=== PATIENT | female | born 1985 | race Caucasian/White ===

== ENCOUNTER 2016-09-02 11:57 | Day surgery (SDC) | payer BC ==
[~2016-09-02 11:57] MED LIST: Lidocaine 2% JELLY* 6 ML JELLY TOPICAL ONE; ROPIVACAINE 5 MG/ML 30 ML BTL (0.5%) EPIDURAL ONE; Succinylcholine* 20 MG/ML 10 ML VIAL ONE
[2016-09-02] MEDS ORDERED: Lidocaine 4% TOPICAL* 50 ML TOP.SOLN ONE (11:59)
[2016-09-02] MEDS ORDERED: Oxymetazoline 0.05% NASAL SPR* 15 ML BTL ONE (11:59)
[2016-09-02] MEDS ORDERED: Methylene Blue 0.5 %* 50 MG/10 ML AMP IV ONE (12:04)
[2016-09-02] MEDS ORDERED: fentaNYL* 50 MCG/ML 2 ML VIAL (100 MCG VIAL) IV ONE (12:16)
[2016-09-02] MEDS ORDERED: Midazolam* 1 MG/ML 2 ML VIAL (2 MG) IV ONE (12:17)
[2016-09-02] MEDS ORDERED: fentaNYL* 50 MCG/ML 2 ML VIAL (100 MCG VIAL) IV PRN (12:26)
[2016-09-02] MEDS ORDERED: Famotidine IV* 10 MG/ML 2 ML (20 mg) ONE (12:40)
[2016-09-02] MEDS ORDERED: Dexamethasone IV* 4 MG/ML 1 ML (4 MG) ONE (12:40)
[2016-09-02] MEDS ORDERED: Buffered Lidocaine 0.9% SYRIN* 5 ML/SYR SYRINGE INJ ONE (12:54)
[2016-09-02] MEDS ORDERED: HYDROcodone/ACET. 7.5/325 LIQ* 15 ML UDC ONE ×2 (14:15→15:02)
[2016-09-02 15:01] VITALS: BP 126/79
--- NOTE | 2016-09-03 16:32 | OP ---
DATE OF OPERATION: 09/02/16 - [facility] DATE OF : [birth year] SURGEON: Christiano Sharpe MD ANESTHESIOLOGIST: Dejan Aragon MD ANESTHESIA: General endotracheal. PRE-OP DIAGNOSIS: Right hypopharyngeal mass. POST-OP DIAGNOSIS: Right hypopharyngeal mass. OPERATIVE PROCEDURE: Microlaryngoscopy with KTP laser excision of right hypopharyngeal mass under general endotracheal anesthesia. COMPLICATIONS: None. DISPOSITION: Good. SPECIMEN: Right hypopharyngeal mass. DESCRIPTION OF PROCEDURE: The patient was taken to the operating room and placed down in supine position on the operating table, general anesthesia as induced, orotracheally intubated with a laser-safe endotracheal tube. She was turned and draped for this surgery including using wet eye pads and wet towels around her face. The bivalvular laryngoscope was inserted to visualize the mass and it was suspended from the suspension system. It was a smooth walled, seeming from a thin capsule but multilobulated internally and it had a broad attachment to the lateral wall of the hypopharynx and the piriform sinus, but as I was retracting, I saw that there was a nice plane to dissect it free. Using the KTP laser at a power setting of 6, I was able to systematically come around it, cutting the attachments and removing it without difficulties. During the case, I used oxymetazoline and 40% lidocaine for anesthesia. The patient tolerated it well, no complications, extubated uneventfully, and transferred to recovery room in stable condition. [id number]/CPS #: [id number] MTDD
== END 2016-09-02 15:24 | disposition home or self-care (01) ==
LOC: OR 11:57
PROVIDERS: ATTEND Otolaryngology
DX: D18.09 Hemangioma of other sites (principal); R13.13 Dysphagia, pharyngeal phase; Z87.891 Personal history of nicotine dependence; K21.9 Gastro-esophageal reflux disease without esophagitis
CPT/HCPCS: 88305; A9270-GY; J0330; J1100; J2250; J2795; J3010

== ENCOUNTER → 2016-09-03 09:24 | Emergency (ER) | payer BC ==
[~2016-09-03 09:24] MED LIST changes: +HYDROcodone/ACET. 7.5/325 LIQ* 15 ML UDC PO ONE; -Lidocaine 2% JELLY* 6 ML JELLY TOPICAL ONE; +PrednisoLONE LIQ 3 MG/ML* 15 MG/5 ML UDC ONE; +PrednisoLONE LIQ 3 MG/ML* 15 MG/5 ML UDC PO ONE; -ROPIVACAINE 5 MG/ML 30 ML BTL (0.5%) EPIDURAL ONE; -Succinylcholine* 20 MG/ML 10 ML VIAL ONE
[2016-09-03 11:37] VITALS: BP 114/70
--- NOTE | 2016-09-03 12:16 | ED ---
Nuvia Lovelace Salem, scribed for Gage Joyce MD on 09/03/16 at 0949 . Throat Pain/Nasal Congestion - HPI Summary HPI Summary: Patient is a 31 y/o F who presents to the ED with difficulty swallowing since earlier today. She states that she underwent throat surgery yesterday with Dr. Florentino for lump removal and biopsy. She has not been able to take the advised Tylenol or Advil because of swelling of the throat. However, she did manage to take 2 Advil pills at 0200 this morning. Pt reports a hoarse voice, but denies SOB, fever, chills, drooling. She states that ice chips have provided little alleviation. Pt called Dr. Bhavik WADE and was instructed to come in. - History of Current Complaint Chief Complaint: EDThroatPain Time Seen by Provider: 09/03/16 09:39 Hx Obtained From: Patient, Family/E Marketing Specialist Onset/Duration: Gradual Onset, Lasting Hours, Still Present Severity: Moderate Associated Signs And Symptoms: Positive: Hoarseness. Negative: Drooling Cough: None - Allergies/Home Medications Allergies/Adverse Reactions: Allergies Allergy/AdvReac Type Severity Reaction Status Date / Time Penicillins Allergy Rash Verified 09/02/16 11:52 PMH/Surg Hx/FS Hx/Imm Hx GI History: Reports: Other GI Disorders - heartburn issue Sensory History: Reports: Hx Contacts or Glasses - both - will wear glasses day of surgery Opthamlomology History: Reports: Hx Contacts or Glasses - both - will wear glasses day of surgery Psychiatric History: Reports: Hx Anxiety - prn med - Surgical History Surgery Procedure, Year, and Place: 2012 - [facility] [place]. appendectomy 2008 - [place]. tonsillectomy as a child - [facility] Hx Anesthesia Reactions: No Infectious Disease History: No Infectious Disease History: Denies: Traveled Outside the [place] in Last 30 Days - Family History Known Family History: Positive: Diabetes, Other - Asthma. - Social History Alcohol Use: None Hx Substance Use: No Substance Use Type: Reports: None Hx Tobacco Use: Yes Smoking Status (MU): Former Smoker Amount Used/How Often: 1/2 ppd for 7 years Review of Systems Negative: Fever, Chills ENT: Other - No drooling. Positive: Other - Difficulty swallowing. Throat swelling. Hoarse voice. Negative: Shortness Of Breath All Other Systems Reviewed And Are Negative: Yes Physical Exam - Summary Physical Exam Summary: The patient is well-nourished in no acute distress and in no acute pain. The skin is warm and dry and skin color reflects adequate perfusion. HEENT: The head is normocephalic and atraumatic. The pupils are equal and reactive. The conjunctivae are clear and without drainage. Nares are patent and without drainage. Mouth reveals moist mucous membranes and the throat is without erythema and exudate. The external ears are intact. The ear canals are patent and without drainage. The tympanic membranes are intact. Neck is supple with full range of motion and non-tender. Respiratory: Chest is non-tender. Lungs are clear to auscultation and breath sounds are symmetrical and equal. There is no stridor. Cardiovascular: Hear is regular rate and rhythm. There is no murmur or rub auscultated. There is no peripheral edema and pulses are symmetrical and equal. Abdomen: The abdomen is soft and non-tender. Musculoskeletal: There is no back pain noted. Extremities are non-tender with full range of motion. There is good capillary refill. Neurological: Patient is alert and oriented to person, place and time. The patient has symmetrical motor strength in all four extremities. Psychiatric: The patient appears mildly anxious. Triage Information Reviewed: Yes Vital Signs On Initial Exam: Initial Vitals Temp Pulse Resp BP Pulse Ox 97.3 F 65 16 153/77 99 09/03/16 09:26 09/03/16 09:26 09/03/16 09:26 09/03/16 09:26 09/03/16 09:26 Vital Signs Reviewed: Yes Diagnostics - Vital Signs Vital Signs Temp Pulse Resp BP Pulse Ox 09/03/16 09:29 96.8 F 62 18 153/77 99 09/03/16 09:26 97.3 F 65 16 153/77 99 - Laboratory Lab Statement: Any lab studies that have been ordered have been reviewed, and results considered in the medical decision making process. Re-Evaluation - Re-Evaluation First Eval Re-Evaluation Time: 10:22 Change: Improved Comment: Discussed consult. Pt feels better. EENT Course/Dx - Course Course Of Treatment: 31 y/o F presents with difficulty swallowing since earlier today s/p throat surgery with Dr. Florentino. Pt reports a hoarse voice, but denies SOB, fever, chills, drooling. She received Nortab in ED course. Pt was seen by Dr. Gutierres in the ED. She will be DCd home with Prednisone and Hydrocodone, as well as instructions. - Differential Diagnoses Differential Diagnoses: Laryngitis, Pharyngitis, Other - abscess, soft tissue swelling - Diagnoses Provider Diagnoses: Laryngeal edema, Secondary to mass removed from throat - Provider Notifications Discussed Care Of Patient With: Ibrahima Gutierres Time Discussed With Above Provider: 10:21 Instructed by Provider To: MD Will See In ED - Will do a bedside scope. Discharge - Discharge Plan Condition: Stable Disposition: HOME Prescriptions: HYDROcodone/ACET. 7.5/325 LIQ* [Lortab Elixir 7.5/325 per 15 ml *] 10 ml PO Q6H PRN #120 ml MDD 40 PRN Reason: pain PrednisoLONE LIQ 3 MG/ML UDC* [PrednisoLONE LIQ 3 MG/ML 5 ml UDC*] 15 mg PO BID #60 ml Patient Education Materials: Pharyngitis (ED) Referrals: Ibrahima Gutierres MD [Medical Doctor] - Additional Instructions: Please follow up with Dr. Gutierres on Monday (09/05/16). The documentation as recorded by the Nuvia galindo Salem accurately reflects the service I personally performed and the decisions made by , Gage Joyce MD.
--- NOTE | 2016-09-05 09:47 | OP ---
DATE OF OPERATION: 09/03/2016 - EMERGENCY DEPT DATE OF : 1985 SURGEON: Ibrahima Gutierres M.D. PRE-OP DIAGNOSES: Odynophagia and mild stridor. POST-OP DIAGNOSES: Odynophagia and mild stridor. OPERATIVE PROCEDURE: Laryngoscopy at bedside. BRIEF HISTORY: This is a 31-year-old female who had recent laryngeal surgery, this morning woke up with significant symptoms of odynophagia and some symptoms feeling of difficulty breathing. She had come to the emergency room where she had some improvement after taking some pain medication including some narcotics. DESCRIPTION OF PROCEDURE: The patient was operated at the bedside with topical anesthesia. Flexible laryngoscopy was introduced. There was evidence of some arytenoid edema and some false cord on the right side edema, somewhat obstructing the airway about one-third of the diameter. 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 Flexible scope was removed. The decision was made to use steroids here and then give her some courses of prednisone. She was advised, if there was any worsening of her symptoms to return back to the office to receive some narcotic pain medication for several days, and return back to the office on Monday if there were any further concerns. [id number]/[facility]AYWARD #: [id number] MTDJr
== END | disposition home or self-care (01) ==
LOC: ED 09:24
DX: J38.4 Edema of larynx (principal); R13.10 Dysphagia, unspecified; Z87.891 Personal history of nicotine dependence; Z98.890 Other specified postprocedural states
CPT/HCPCS: 99282

== ENCOUNTER 2017-05-30 15:01 | Inpatient (IN) | payer BC ==
[2017-05-30 15:48] LABS: ABS Basophils 0 10^3/ul (0-0.2); ABS Eosinophils 0 10^3/ul (0-0.6); ABS Lymphocytes 0.4 10^3/ul (1.0-4.8); ABS Monocytes 0.5 10^3/ul (0-0.8); ABS Neutrophils 7.9 10^3/ul (1.5-7.7); ABS Nucleated RBC 0 10^3/ul; Eosinophil % 0.1 % (0-6); Hematocrit 35 % (35-47); Hemoglobin 11.8 g/dl (12.0-16.0); Lymphocyte % 4.4 % (25-47); Mean Corpuscular HGB Conc 34 g/dl (31-36); Mean Corpuscular Hemoglobin 30 pg (27-31); Mean Corpuscular Volume 87 fL (80-97); Mean Platelet Volume 7.8 um3 (7.4-10.4); Nucleated Red Blood Cells % 0.1; Platelet Count 233 10^3/ul (150-450); Red Cell Distribution Width 15 % (10.5-15); White Blood Count 8.9 10^3/ul (3.5-10.8)
[2017-05-30] MEDS ORDERED: Sodium Citrate/Citric Acid* 15 ML UDC PO ONE (16:51)
[2017-05-30] MEDS ORDERED: ceFOXitin 2 GM IVPREMIX* 2 GM/50 ML BAG IVPB ONE (16:51)
[2017-05-30] MEDS ORDERED: Morphine PF AMP (0.5MG/ML)* 5 MG/10 ML AMP ONE (17:57)
[2017-05-30] MEDS ORDERED: OXYTOCIN* 10 UNITS/ML 1 ML VIAL ONE (17:57)
[2017-05-30] MEDS ORDERED: ceFOXitin(*) 2 GM in NS 0.9% 50 ML* 50 ML IVPB ONE (18:00)
[2017-05-30] MEDS ORDERED: Glycerin ADULT SUPP PR PRN (18:23)
[2017-05-30] MEDS ORDERED: oxyCODONE/Acetamin 5/325 MG* TAB PO PRN ×2 (18:23)
[2017-05-30] MEDS ORDERED: Witch Hazel PAD* JAR TOPICAL PRN (18:23)
[2017-05-30] MEDS ORDERED: Dibucaine 1% 28.35 GM TUBE PR PRN (18:23)
[2017-05-30] MEDS ORDERED: Acetaminophen TAB* 325 MG PO PRN (18:23)
[2017-05-30] MEDS ORDERED: fentaNYL* 50 MCG/ML 2 ML VIAL (100 MCG VIAL) IV PRN (19:29)
[2017-05-30] MEDS ORDERED: Naloxone* 0.4 MG/ML 1 ML VIAL IV PRN ×2 (19:29→19:30)
[2017-05-30] MEDS ORDERED: Ondansetron INJ* 2 MG/ML VIAL IV PRN (19:30)
[2017-05-30] MEDS: Docusate CAP* 100 MG PO SCH (21:11)
[2017-05-30] MEDS: oxyCODONE/Acetamin 5/325 MG* TAB PO PRN ×2 (21:11→21:48)
[2017-05-30] MEDS: Simethicone TAB* 80 MG TAB.CHEW PO SCH (21:12)
[2017-05-30] MEDS: Ibuprofen TAB* 400 MG PO SCH (21:12)
[2017-05-31] MEDS: Ibuprofen TAB* 400 MG PO SCH ×2 (01:31→07:52)
[2017-05-31] MEDS: oxyCODONE/Acetamin 5/325 MG* TAB PO PRN ×4 (01:32→19:47)
[2017-05-31 07:23] LABS: ABS Basophils 0 10^3/ul (0-0.2); ABS Eosinophils 0 10^3/ul (0-0.6); ABS Lymphocytes 0.9 10^3/ul (1.0-4.8); ABS Nucleated RBC 0 10^3/ul; Eosinophil % 0.3 % (0-6); Hematocrit 30 % (35-47); Hemoglobin 10.3 g/dl (12.0-16.0); Lymphocyte % 10.4 % (25-47); Mean Corpuscular HGB Conc 34 g/dl (31-36); Mean Corpuscular Hemoglobin 30 pg (27-31); Mean Corpuscular Volume 86 fL (80-97); Mean Platelet Volume 8.1 um3 (7.4-10.4); Nucleated Red Blood Cells % 0; Platelet Count 175 10^3/ul (150-450); Red Blood Count 3.47 10^6/ul (4.0-5.4); Red Cell Distribution Width 15 % (10.5-15)
[2017-05-31] MEDS: Docusate CAP* 100 MG PO SCH ×3 (07:52→19:46)
[2017-05-31] MEDS: Simethicone TAB* 80 MG TAB.CHEW PO SCH ×4 (07:52→19:46)
[2017-05-31] MEDS: Levothyroxine TAB* 25 MCG TAB PO SCH (08:00)
[2017-05-31] MEDS: Ferrous Gluconate TAB* 324 MG TAB PO SCH ×2 (09:00→19:46)
[2017-05-31] MEDS ORDERED: oxyCODONE/Acetamin 5/325 MG* TAB PO PRN (10:00)
--- NOTE | 2017-05-31 13:02 | OP ---
DATE OF OPERATION: 05/30/17 - ROOM #103 DATE OF : [birth year] SURGEON: Heidy Harvey MD. COMMISSION AUDITOR: Gaston Calderon CNM. PRE-OP DIAGNOSIS: Intrauterine gestation at 38 and 5 weeks' gestational age, prior section, rupture of membranes. Desires permanent sterilization. POST-OP DIAGNOSIS: Intrauterine gestation at 38 and 5 weeks' gestational age, prior section, rupture of membranes. OPERATIVE PROCEDURE: Repeat lower transverse section. ESTIMATED BLOOD LOSS: 600 mL. FLUIDS: Crystalloid, 1500. COUNTS: All correct. FINDINGS: Male . Weight 7 pounds 12 ounces. Apgars of 8 and 9. Normal- appearing placenta, uterus, ovaries, and tubes. INDICATION: The patient was planning for repeat section, but experienced rupture of membranes at 2 p.m. On arrival to Labor and Delivery, she was grossly ruptured. She did begin to have some contractions while in Labor and Delivery and opted to proceed with the repeat section instead of a trial of labor after section. Risks and benefits were reviewed with the patient extensively. DESCRIPTION OF PROCEDURE: After informed consent was signed, the patient was taken to the operating room where she was given a spinal anesthesia that was found to be adequate. She was prepped and draped in the dorsal supine position with a leftward tilt. A Yung catheter was introduced into her bladder and SCDs were placed on her legs. A time-out was performed. A Pfannenstiel incision was then made with a scalpel and carried down to the underlying layer of fascia. The fascia was incised on either side of the midline and the fascial incision was extended laterally with the Rodarte scissors. The inferior edge of the fascial incision was grasped with Silva clamps, tented up, and dissected down with a combination of sharp and blunt dissection. Then, the superior edge of the fascial incision was grasped with Silva clamps, tented up , and dissected down with blunt dissection. The rectus muscles were in the midline and the peritoneum was entered bluntly. The peritoneal incision was extended laterally with blunt pressure. The bladder blade was inserted. A transverse incision was made in the lower uterine segment with the scalpel. The incision was extended superiorly and inferiorly with blunt pressure. The 's head was delivered with fundal pressure followed by the shoulders and the rest of the body. After more than 30 seconds, the cord was clamped x2 and cut, and the baby was handed to the rn oncology. Cord blood was collected. The placenta then delivered with fundal massage and gentle cord traction. The uterus was exteriorized and cleared of clots and debris. The uterine incision was closed with 0 Vicryl in a running locked fashion with a second layer of suture imbricating the first. The abdomen was irrigated. Attention was turned to the tubes. The right tube was grasped with two Zenobia clamps and tied with 0 plain, with two sutures. The clamps were removed and good hemostasis was noted. Then attention was turned to the left tube, where the same procedure was repeated. The uterus was placed back into the abdominal cavity and the tubal sites were inspected once again and sutures were noted to be in place with good hemostasis. The incision was inspected and good hemostasis was noted. The peritoneum was then closed with 3-0 Vicryl in a running and locked fashion. The fascia was closed with 0 Vicryl in a running and locked fashion. The skin was closed with 4-0 Monocryl in a running subcuticular fashion. The incision was cleaned. Mastisol and Steri-Strips were placed and dressing was placed. The patient was moved to the stretcher and taken to the recovery room in stable condition. [id number]/SHELBY #: [id number] MARY JANE
[2017-05-31] MEDS: Ibuprofen TAB* 600 MG PO PRN ×2 (14:13→18:50)
[2017-05-31] MEDS ORDERED: Zolpidem TAB* 5 MG PO PRN (21:00)
[2017-06-01] MEDS: Ibuprofen TAB* 600 MG PO PRN ×4 (01:07→21:23)
[2017-06-01] MEDS: oxyCODONE/Acetamin 5/325 MG* TAB PO PRN ×6 (01:08→21:24)
[2017-06-01] MEDS: Levothyroxine TAB* 25 MCG TAB PO SCH (05:03)
[2017-06-01] MEDS: Simethicone TAB* 80 MG TAB.CHEW PO SCH ×4 (08:03→21:24)
[2017-06-01] MEDS: Docusate CAP* 100 MG PO SCH ×3 (09:23→21:23)
[2017-06-01] MEDS: Ferrous Gluconate TAB* 324 MG TAB PO SCH (09:25)
[2017-06-02] MEDS: Ibuprofen TAB* 600 MG PO PRN ×2 (03:51→10:47)
[2017-06-02] MEDS: oxyCODONE/Acetamin 5/325 MG* TAB PO PRN ×2 (03:52→10:48)
[2017-06-02] MEDS: Levothyroxine TAB* 25 MCG TAB PO SCH (06:05)
[2017-06-02] MEDS: Ferrous Gluconate TAB* 324 MG TAB PO SCH (06:23)
[2017-06-02 08:00] VITALS: BP 119/72
[2017-06-02] MEDS: Docusate CAP* 100 MG PO SCH (10:48)
[2017-06-02] MEDS: Simethicone TAB* 80 MG TAB.CHEW PO SCH (10:48)
== END 2017-06-02 13:47 | disposition home or self-care (01) | DRG 540 ==
LOC: MCHOBOUT 15:01 → MCHOB 16:23
PROVIDERS: ADMIT Obstetrics & Gynecology; ATTEND Obstetrics & Gynecology
PROC: 4A1HX4Z Monitoring of Products of Conception, Cardiac Electrical Activity, External Approach (ICD-10-PCS; 2017-05-30)
PROC: 0UB70ZZ Excision of Bilateral Fallopian Tubes, Open Approach (ICD-10-PCS; 2017-05-30)
PROC: 10D00Z1 Extraction of Products of Conception, Low, Open Approach (ICD-10-PCS; principal; 2017-05-30 18:04)
DX: O34.211 Maternal care for low transverse scar from previous cesarean delivery (principal); O99.284 Endocrine, nutritional and metabolic diseases complicating childbirth; E03.9 Hypothyroidism, unspecified; Z3A.38 38 weeks gestation of pregnancy; Z37.0 Single live birth; Z88.0 Allergy status to penicillin; Z30.2 Encounter for sterilization
CPT/HCPCS: 36415; 84112; 85025; 86850; 86900; 86901; 88302; A9270-GY; J0694; J2405; J2590; J3010

== ENCOUNTER 2019-04-26 09:04 | Emergency (ER) | payer BC ==
--- OUTSIDE RECORDS SUMMARY | 2019-04-26 09:10 | XMS REPORT | Continuity of Care Document ---
:1985 External Reference #:[id number] Author Name Heriberto Roger MD Address [address] [place] [address] Care Team Providers Name Role Phone Mik Mai N.P. Care Team Information Casting Room Helper [phone] Casa Melendez DDS Care Team Information Casting Room Helper [phone] Problems Description No Information Available Social History Type Date Description Comments Sex Unknown Tobacco Use Start: Unknown End: Unknown Former Cigarette Smoker 1/2 Pack Daily Tobacco Use Start: Unknown End: Unknown for 8 years, quit at age 27 Smoking Status Reviewed: 03/12/19 for 8 years, quit at age 27 Tobacco Use Start: Unknown Never Smoked Cigars Tobacco Use Start: Unknown Never Smoked A Pipe Smokeless Tobacco Never Used Smokeless Tobacco ETOH Use Currently rarely consumes alcohol Tobacco Use Start: Unknown End: Unknown Patient is a former smoker Allergies, Adverse Reactions, Alerts Active Allergies Reaction Severity Comments Date Penicillin 08/24/2016 Medications Description No Active Medications Immunizations Description No Information Available Vital Signs Date Vital Result Comment 03/12/2019 9:08am Weight 195.00 lb Weight 88.452 kg Height 68 inches 5'8" Height in cm's 172.7 cm BMI (Body Mass Index) 29.6 kg/m2 12/25/2018 11:20am Weight 195.00 lb Weight 88.452 kg Height 68 inches 5'8" Height in cm's 172.7 cm BMI (Body Mass Index) 29.6 kg/m2 Results Description No Information Available Procedures Description No Information Available Medical Devices Description No Information Available Encounters Type Date Location Provider Dx Diagnosis [place] 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 Plan of Treatment No Information Available Functional Status Description No Information Available Mental Status Description No Information Available Referrals Description No Information Available
[2019-04-26 09:13] VITALS: BP 128/68
--- NOTE | 2019-04-26 09:28 | UC ---
Throat Pain/Nasal Ayaz HPI - HPI Summary HPI Summary: The patient is a 34-year-old female that has had a sore throat and swollen glands for 5-7 days. She has felt feverish. She has had a headache and muscle aches. She has had her tonsils out. - History of Current Complaint Chief Complaint: UCGeneralIllness Stated Complaint: SORE THROAT Time Seen by Provider: 04/26/19 09:18 Hx Obtained From: Patient Hx Last Menstrual Period: 04/12/19 Onset/Duration: Gradual Onset, Lasting Days Severity: Moderate Pain Intensity: 6 Pain Scale Used: 0-10 Numeric Cough: None Associated Signs & Symptoms: Positive: Fever Related History: T & A - Epiglottits Risk Factors Epiglottis Risk Factors: Negative - Allergies/Home Medications Allergies/Adverse Reactions: Allergies Allergy/AdvReac Type Severity Reaction Status Date / Time Penicillins Allergy Rash Verified 04/26/19 09:13 Home Medications: Home Medications Azithromycin 500 mg PO DAILY #5 tablet 04/26/19 [Rx] PMH/Surg Hx/FS Hx/Imm Hx Previously Healthy: Yes - Surgical History Surgical History: Yes Surgery Procedure, Year, and Place: 2012 - [facility] [place]. [place] 2008 - [place]. tonsillectomy as a child - [facility] - Family History Known Family History: Positive: Diabetes, Other - Asthma. , Non-Contributory - Social History Alcohol Use: None Substance Use Type: None Smoking Status (MU): Former Smoker Amount Used/How Often: 1/2 ppd for 7 years Have You Smoked in the Last Year: No When Did the Patient Quit Smoking/Using Tobacco: 2011 - Immunization History Most Recent Influenza Vaccination: 11/02/16 Most Recent Tetanus Shot: 01/24/13 Most Recent Pneumonia Vaccination: none Review of Systems All Other Systems Reviewed And Are Negative: Yes Constitutional: Positive: Fever, Chills Skin: Positive: Negative Eyes: Positive: Negative ENT: Positive: Sore Throat Respiratory: Positive: Negative Cardiovascular: Positive: Negative Gastrointestinal: Positive: Negative Genitourinary: Positive: Negative Motor: Positive: Negative Neurovascular: Positive: Negative Musculoskeletal: Positive: Myalgia Neurological/Mental Status: Positive: Headache Psychological: Positive: Negative Physical Exam Triage Information Reviewed: Yes Appearance: Well-Appearing, No Pain Distress, Well-Nourished Vital Signs: Initial Vital Signs Temp 98 F 04/26/19 09:11 Pulse 57 04/26/19 09:11 Resp 15 04/26/19 09:11 BP 128/68 04/26/19 09:11 Pulse Ox 100 04/26/19 09:11 Vital Signs Reviewed: Yes Eyes: Positive: Conjunctiva Clear ENT: Positive: Hearing grossly normal, Pharyngeal erythema, Uvula midline. Negative: Nasal congestion, Nasal drainage, Tonsillar swelling, Tonsillar exudate, Dental tenderness, Sinus tenderness Neck: Positive: Supple, Enlarged Nodes @ - ant cerv Respiratory: Positive: Lungs clear, Normal breath sounds, No respiratory distress, No accessory muscle use Cardiovascular: Positive: RRR, No Murmur Musculoskeletal: Positive: ROM Intact, No Edema Neurological: Positive: Alert Psychological Exam: Normal Skin Exam: Normal Diagnostics - Laboratory Lab Results: strep + Throat Pain/Nasal Course/Dx - Differential Dx/Diagnosis Provider Diagnosis: Strep throat Discharge ED - Sign-Out/Discharge Documenting (check all that apply): Patient Departure All imaging exams completed and their final reports reviewed: No Studies - Discharge Plan Condition: Stable Disposition: HOME Prescriptions: Azithromycin 500 mg PO DAILY #5 tablet Patient Education Materials: Strep Throat (ED) Referrals: Rivka Whitley [Primary Care Provider] - If Needed - Billing Disposition and Condition Condition: STABLE Disposition: Home
== END 2019-04-26 10:11 | disposition home or self-care (01) ==
LOC: UCEAST 09:04
DX: J02.0 Streptococcal pharyngitis (principal); Z88.0 Allergy status to penicillin; Z87.891 Personal history of nicotine dependence
CPT/HCPCS: 87651; 99212; G0463